=== PATIENT | female | born 1975 | race Caucasian/White ===

== ENCOUNTER 2017-02-27 03:59 | Inpatient (IN) | payer MEDICAID ==
[~2017-02-27] VITALS: Ht 165.1 cm; Wt 89.5 kg
[~2017-02-27 03:59] MED LIST: CALC600T24 PO; FER325 PO; PREN1TAB62 PO
[2017-02-27 04:19] VITALS: Ht 165.1 cm; Wt 89.5 kg
[2017-02-27 04:20] VITALS: BP 116/56; PULSE 87; RESP 18
[2017-02-27] MEDS ORDERED: FOLI0.4T2 PO (04:24)
[2017-02-27] MEDS ORDERED: BUTORPHANOL 2 MG INJ IV PRN (04:30)
[2017-02-27] MEDS ORDERED: OXYTOCIN 30 UNITS/LR 500 ML IV PRN ×2 (04:30→17:00)
[2017-02-27] MEDS ORDERED: LIDOCAINE 1% (MPF) 30 ML INJ INJ PRN (04:30)
[2017-02-27] MEDS ORDERED: MISOPROSTOL 200 MCG TAB PR PRN ×2 (04:30→17:00)
[2017-02-27] MEDS ORDERED: METHYLERGONOVINE 0.2 MG INJ IM PRN ×2 (04:30→17:00)
[2017-02-27] MEDS ORDERED: CARBOPROST 250 MCG INJ IM PRN ×2 (04:30→17:00)
[2017-02-27] MEDS ORDERED: AMPICILLIN 2 GM/NS (PMX) 100 ML IV ONE (04:30)
[2017-02-27] MEDS ORDERED: OXYTOCIN 30 UNITS/LR 500 ML IV SCH (04:30)
[2017-02-27] MEDS: LACTATED RINGER'S 1,000 ML IV SCH ×2 (04:45→13:09)
[2017-02-27 05:02] LABS: BASOPHILS % 0.3 % (0.0-2.0); EOSINOPHILS % 0.4 % (0.0-7.0); HEMATOCRIT 35.4 % (37.0-47.0); HEMOGLOBIN 12.4 g/dl (12.0-16.0); LYMPHOCYTES # 1.8 10^3/ul (0.8-2.9); LYMPHOCYTES % 23.5 % (15.0-51.0); MEAN CORPUSCULAR VOLUME 88.5 fl (82.0-101.0); MEAN PLATELET VOLUME 12.4 fl (7.4-10.4); MONOCYTE # 0.4 10^3/ul (0.3-0.9); MONOCYTES % 4.9 % (0.0-11.0); NEUTROPHIL # 5.4 10^3/ul (1.6-7.5); NEUTROPHILS % 70.4 % (39.0-77.0); PLATELET COUNT 191 10^3/UL (140-415); RED CELL DISTRIBUTION WIDTH 13.3 % (11.5-14.5); WHITE BLOOD COUNT 7.7 10^3/ul (4.8-10.8)
[2017-02-27 05:24] LABS: INR 0.97; PROTIME 12.9 Sec (12.2-14.2)
[2017-02-27 05:25] LABS: PARTIAL THROMBOPLASTIN TIME 29.1 Sec (25.0-35.0)
[2017-02-27] MEDS ORDERED: LACTATED RINGER'S 1,000 ML IV PRN (09:00)
[2017-02-27] MEDS: AMPICILLIN 1 GM/NS (PMX) 50 ML IV SCH ×2 (09:21→13:05)
--- NOTE | 2017-02-27 16:16 | HP ---
Date/Time of Note Date/Time of Note DATE: 02/27/17 TIME: 16:14 OB - History Hx of Present Chief Complaint: leakage of fluid Estimated Due Date: Mar 23, 2017 : 7 Para: 4 Spontaneous : 2 Therapeutic : 0 Care: Other (records not available) Ultrasounds: Other (records not available) Obstetrical Complications: None Medical Complications: None Past Family/Social History * Past Medical, Surgical, Family and Obstetric Histories reviewed from chart. GBS Status: Unknown OB Admission Exam Vital Signs Vital Signs Vital Signs Date Time Temp Pulse Resp B/P Pulse Ox O2 Delivery O2 Flow Rate FiO2 02/27/17 04:20 97.9 87 18 116/56 Room Air Physical Exam HEENT: WNL Heart: Rhythm Normal Lungs: Clear, Equal Abdomen: WNL Extremities: Normal Reflexes: Normal Cervical Dilatation: 3cm Effacement: 100% Station: -1 Membranes: Ruptured Amniotic Fluid: Clear Heart Rate: 150's Accelerations: Accelerations Present Decelerations: No Decelerations Varibility: Moderate Last 72 hours Lab Results CBC & BMP 02/27/17 04:45 OB Assessment/Plan Reason for admission: rupture of membranes Plan: Expectant Management BARBARA ZAMAN MD Feb 27, 2017 16:16
--- NOTE | 2017-02-27 16:19 | LDN ---
Date/Time of Note Date/Time of Note DATE: 02/27/17 TIME: 16:16 Delivery Summary Weeks of Gestation 36 weeks Placenta Delivered: Spontaneously Meconium: none Episiotomy: No Perineal laceration: 1 Laceration repair: First degree perineal laceration repaired with 3-0 Vicryl. Anesthesia type: Local Estimated blood loss: 200 Sponge & Needle done & correct: Yes All needle counts correct: Yes Any foreign bodies felt in the: No Problems: Delivery Information Sex Sex: male Apgars 1 Minute: 9 5 Minute: 9 Suctioning Nose & mouth suctioned at colt: Yes Delee suction performed: No Umbilical Cord Umbilical cord with: 3 Vessels Cord presentations: no nuchal cord Cord Blood was obtained: Yes Mother & Baby Disposition Disposition Mom & Baby to Maternity; Good: Yes BARBARA ZAMAN MD Feb 27, 2017 16:19
[2017-02-27] MEDS: OXYTOCIN 30 UNITS/LR 500 ML IV SCH ×2 (16:30→16:31)
[2017-02-27] MEDS: LACTATED RINGER'S 1,000 ML IV* SCH (16:35)
[2017-02-27] MEDS ORDERED: BENZOCAINE 20% 56 ML SPRAY TOP PRN (17:00)
[2017-02-27] MEDS ORDERED: DIBUCAINE 1% 30 GM OINT PR PRN (17:00)
[2017-02-27] MEDS ORDERED: ACETAMINOPHEN 325 MG TAB PO PRN (17:00)
[2017-02-27] MEDS ORDERED: WITCH HAZEL/GLYCERIN PAD PR PRN (17:00)
[2017-02-27] MEDS ORDERED: HYDROCODONE/APAP (5/325) TAB PO PRN (17:00)
[2017-02-27 18:20] VITALS: BP 121/58; PULSE 60; RESP 17
[2017-02-27] MEDS: IBUPROFEN 600 MG TAB PO SCH (18:56)
[2017-02-27 20:00] VITALS: BP 110/69; PULSE 72; RESP 18
[2017-02-27] MEDS: SENNA/DOCUSATE NA (8.6MG/50MG) TAB PO SCH (20:27)
[2017-02-28] VITALS: BP 101/55; PULSE 61; RESP 18
[2017-02-28] MEDS: LACTATED RINGER'S 1,000 ML IV* SCH ×3 (00:35→16:35)
[2017-02-28 04:00] VITALS: BP 98/55; PULSE 58; RESP 18
[2017-02-28] MEDS: IBUPROFEN 600 MG TAB PO SCH ×4 (05:43→17:51)
[2017-02-28 08:00] VITALS: BP 89/53; PULSE 59; RESP 18
[2017-02-28] MEDS: SENNA/DOCUSATE NA (8.6MG/50MG) TAB PO SCH ×2 (09:02→23:03)
[2017-02-28 09:56] LABS: BASOPHILS % 0.5 % (0.0-2.0); EOSINOPHILS # 0.1 10^3/ul (0.0-0.5); EOSINOPHILS % 0.8 % (0.0-7.0); HEMOGLOBIN 10.9 g/dl (12.0-16.0); LYMPHOCYTES # 2.7 10^3/ul (0.8-2.9); LYMPHOCYTES % 30.3 % (15.0-51.0); MEAN CORPUSCULAR HEMOGLOBIN 30.7 pg (29.0-33.0); MEAN CORPUSCULAR HGB CONC 34.1 g/dl (32.0-37.0); MEAN CORPUSCULAR VOLUME 90.1 fl (82.0-101.0); MEAN PLATELET VOLUME 12.6 fl (7.4-10.4); MONOCYTE # 0.4 10^3/ul (0.3-0.9); NEUTROPHIL # 5.6 10^3/ul (1.6-7.5); NEUTROPHILS % 62.7 % (39.0-77.0); PLATELET COUNT 165 10^3/UL (140-415); RED BLOOD COUNT 3.55 10^6/ul (4.20-5.40); RED CELL DISTRIBUTION WIDTH 13.5 % (11.5-14.5); WHITE BLOOD COUNT 8.8 10^3/ul (4.8-10.8)
[2017-02-28 12:00] VITALS: BP 104/56; PULSE 67; RESP 18
--- NOTE | 2017-02-28 12:17 | QN ---
Documentation Comment ppd1 pt doing well vss exam wnl a/p ppd1 continue care SURESH CHILEL MD Feb 28, 2017 12:17
[2017-02-28 16:00] VITALS: BP 105/54; PULSE 60; RESP 18
[2017-02-28 20:00] VITALS: BP 110/54; PULSE 61; RESP 20
[2017-03-01] MEDS ORDERED: LEVALBUTEROL (HFA) 15 GM INHALER INH SCH
[2017-03-01] MEDS: LACTATED RINGER'S 1,000 ML IV* SCH (00:35)
[2017-03-01] MEDS: IBUPROFEN 600 MG TAB PO SCH ×4 (00:38→18:51)
[2017-03-01 04:00] VITALS: BP 94/57; PULSE 52; RESP 19
[2017-03-01 08:20] VITALS: BP 103/52; PULSE 52; RESP 19
[2017-03-01] MEDS ORDERED: DIPHTH/TET/ACEL PERTUSS (ADULT) 0.5 ML VIAL IM* ONE (09:00)
[2017-03-01] MEDS ORDERED: INFLUENZA VIRUS VACCINE 0.5 ML (DISPENSING) IM* ONE (09:00)
--- NOTE | 2017-03-01 10:08 | PD.PPDC ---
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
--- NOTE | 2017-03-01 10:11 | DS ---
Date/Time of Note Date/Time of Note DATE: 03/01/17 TIME: 10:09 Discharge Summary Admission/Discharge Info Admit Date/Time Feb 27, 2017 at 04:43 Discharge Date/Time March 01, 2017 at 10 AM Discharge Diagnosis Post normal vaginal delivery day 2 Patient Condition: Good Procedures Normal vaginal delivery Hx of Present Illness Term in labor Hospital Course Satisfactory uneventful Home Meds Reported Medications Folic Acid* (Folic Acid*) 0.4 Mg Tablet, 0.4 MG PO DAILY, TAB 02/27/17 Ferrous Sulfate* (Ferrous Sulfate*) 325 Mg Tabec, 325 MG PO DAILY, TAB 05/24/14 Calcium Carbonate* (Calcium Carbonate*) 600 MG Ca Tab, 600 MG PO, TAB 05/24/14 Vit-Iron Fumarate-FA ( Vitamin Tablet) 1 Each Tablet, 1 TAB PO DAILY, TAB 05/24/14 Follow-up Plan instructions given recommended patient to make appointment in 2 weeks to be seen at the clinic Primary Care Provider Not On Staff Doctor Time spent on discharge: < 30 minutes XIMENA CARRION MD Mar 01, 2017 10:11
[2017-03-01] MEDS: SENNA/DOCUSATE NA (8.6MG/50MG) TAB PO SCH (10:23)
[2017-03-01 15:45] VITALS: BP 105/58; PULSE 50; RESP 18
== END 2017-03-01 18:58 | disposition home or self-care (01) | DRG 775 ==
LOC: OBT 03:59 → L-D 03:59 → OBT 04:42 → L-D 04:43 → PP1 18:18
PROVIDERS: ADMIT Obstetrics & Gynecology; ATTEND Obstetrics & Gynecology
PROC: 10E0XZZ Delivery of Products of Conception, External Approach (ICD-10-PCS; principal; 2017-02-27)
PROC: 0HQ9XZZ Repair Perineum Skin, External Approach (ICD-10-PCS; 2017-02-27)
DX: O70.0 First degree perineal laceration during delivery (principal); Z37.0 Single live birth; Z3A.36 36 weeks gestation of pregnancy
CPT/HCPCS: 84112; 85025; 85610; 85730; 86592; 86900; 86901; 87340; 88307; 90686; 90715; G0463; J0290; J0595; J2590; J7120

== ENCOUNTER → 2017-07-13 | Day surgery (SDC) | END | disposition home or self-care (01) ==